=== PATIENT | female | born 1970 | race Caucasian/White ===

== ENCOUNTER 2021-01-24 05:43 | Inpatient (IN) | payer BC, OTHER ==
[~2021-01-24] VITALS: Ht 172.7 cm; Wt 49.4 kg
[2021-01-24] VITALS (14 sets, daily range): BP systolic 66–107; BP diastolic 33–64
[2021-01-24] MEDS ORDERED: DEXTROSE 50% 50 ML VIAL As Ordered ONE (05:55)
[2021-01-24] MEDS ORDERED: NOREPINEPHRINE 4 MG/4 ML AMP As Ordered ONE (06:03)
[2021-01-24] MEDS ORDERED: EPINEPHrine HCL INJ 1 MG in D5W 240 ML IV STA (06:28)
[2021-01-24 06:35] LABS: HEMATOCRIT 36.7 % (36.0-47.0); HEMOGLOBIN 10.6 g/dl (12.0-15.5); MEAN CORPUSCULAR HEMOGLOBIN 20.4 pg (27.0-33.0); MEAN CORPUSCULAR HGB CONC 28.9 g/dl (32.0-36.5); MEAN CORPUSCULAR VOLUME 70.6 fl (80.0-96.0); WHITE BLOOD COUNT 1.7 10^3/uL (4.0-10.0)
[2021-01-24 06:39] LABS: ABG HCO3 5.4 MEQ/L (22.0-26.0); ABG TOTAL CO2 7.2 MEQ/L (22.0-29.0)
[2021-01-24 06:41] LABS: ABG BASE EXCESS -32.6 (-2.0-2.0); ABG PARTIAL PRESSURE CO2 58.7 mmHg (35.0-45.0); ABG PARTIAL PRESSURE O2 89.3 mmHg (75.0-100.0); ABG STANDARD HCO3 2.6 MEQ/L (22.0-26.0)
[2021-01-24 06:42] LABS: ABG pH (ARTERIAL) 6.583 UNITS (7.350-7.450)
[2021-01-24 06:48] LABS: INR 2.06; PROTHROMBIN TIME 23.6 SECONDS (12.7-14.5)
[2021-01-24 06:50] LABS: PARTIAL THROMBOPLASTIN TIME 81.9 SECONDS (25.9-37.0)
[2021-01-24] MEDS ORDERED: NS 1,000 ML IV ONE ×3 (06:50→09:00)
[2021-01-24] MEDS ORDERED: NOREPINEPHRINE BITARTRATE 8 MG in D5W 492 ML IV SCH ×2 (06:50→10:05)
[2021-01-24 07:08] LABS: ALBUMIN 1.3 GM/DL (3.2-5.2); ALT/SGPT 292 U/L (12-78); BILIRUBIN,DIRECT 0.5 MG/DL (0.0-0.2); BILIRUBIN,TOTAL 0.9 MG/DL (0.2-1.0); BLOOD UREA NITROGEN 30 MG/DL (7-18); CALCIUM LEVEL 11.4 MG/DL (8.5-10.1); CARBON DIOXIDE LEVEL 12 MEQ/L (21-32); CHLORIDE LEVEL 101 MEQ/L (98-107); CHOLESTEROL LEVEL < 50 MG/DL (<200); CHOLESTEROL RISK RATIO 4.545 (<5); CK-MB VALUE MASS 8.3 NG/ML (<3.6); CPK CREATINE PHOSPHOKINASE 426 U/L (26-192); GLOMERULAR FILTRATION RATE 36.6 (>58); GLUCOSE, FASTING 237 MG/DL (70-100); HDL CHOLESTEROL 11 MG/DL (>40); LDL CHOLESTEROL 13 MG/DL (<100); MB/CK RELATIVE INDEX 1.95 (< OR =4); NON-HDL-C 39 MG/DL; POTASSIUM SERUM 5.9 MEQ/L (3.5-5.1); SODIUM LEVEL 140 MEQ/L (136-145); TOTAL PROTEIN 3.6 GM/DL (6.4-8.2); TRIGLYCERIDES LEVEL 129 MG/DL (<150); TROPONIN I 0.14 NG/ML (< 0.10)
[2021-01-24] MEDS ORDERED: PIPERACILLIN/TAZOBACTAM SOD 4.5 GM in D5W MINI-BAG PLUS 50 ML IV ONE (08:00)
[2021-01-24] MEDS ORDERED: VANCOMYCIN HCL 1,000 MG, VIAL MATE ADAPTER 1 EACH in NS 250 ML IV ONE (08:00)
[2021-01-24] MEDS: EPINEPHRINE HCL IV SCH ×6 (08:00→15:54)
[2021-01-24] MEDS: D5W IV SCH ×6 (08:00→15:54)
[2021-01-24 08:02] LABS: PLATELET COUNT, AUTOMATED 26 10^3/uL (150-450)
[2021-01-24] MEDS ORDERED: SODIUM BICARBONATE 8.4% INJ 50 ML SYRINGE IV STA ×3 (08:03→14:49)
[2021-01-24] MEDS ORDERED: SOD POLYSTYRENE SULFONATE SUSP 15 GM/60 ML UD NG ONE (08:05)
[2021-01-24] MEDS ORDERED: HumuLIN R (REGULAR) INSULIN (NovoLIN R) **100U/ML** PER UNIT SC ONE (08:05)
[2021-01-24] MEDS ORDERED: VASOPRESSIN INJ 20 UNITS/ML VIAL As Ordered ONE (08:12)
[2021-01-24 08:13] LABS: LYMPHOCYTES 92 % (16-44); METAMYELOCYTES 2 % (0-0); MONOCYTES 4 % (0-5)
[2021-01-24 08:14] LABS: PLATELET ESTIMATE MARKED DECREASE (NORMAL)
[2021-01-24 08:17] LABS: CRENATED RBC 3+; SCHISTOCYTES 2+
[2021-01-24 08:18] LABS: OVALOCYTES 1+
[2021-01-24 08:19] LABS: ANISOCYTOSIS 1+
--- NOTE | 2021-01-24 08:25 | REP ---
INDICATION: ett. COMPARISON: None. TECHNIQUE: Supine portable radiograph of the chest. Single-view. FINDINGS: An endotracheal tube is been passed in good position at the level of the transverse aorta. NG tube enters the left upper quadrant of the abdomen. EKG monitoring electrodes overlie the chest. There are extensive bilateral pulmonary parenchymal infiltrates consistent with extensive pneumonia. Air bronchograms are seen throughout the left lower lobe in the opacity in the left lower lobe obscures the left hemidiaphragm. There is extensive opacification in the right upper lobe and in the right lower lobe as well. Heart is not felt to be enlarged. The extra thoracic soft tissues are extremely thin suggestive of. IMPRESSION: Extensive bilateral pulmonary parenchymal infiltrates consistent with widespread pneumonia. Endotracheal and nasogastric tubes in good position <Electronically signed by Nikolay Logan > 01/24/21 0882
[2021-01-24] MEDS ORDERED: CALCIUM GLUCONATE 1,000 MG in D5W MINI-BAG PLUS 100 ML IV ONE (08:35)
[2021-01-24 08:39] LABS: ABG BASE EXCESS -31.7 (-2.0-2.0); ABG HCO3 5.4 MEQ/L (22.0-26.0); ABG O2 SATURATION 80.2 % (95.0-99.0); ABG PARTIAL PRESSURE CO2 49.9 mmHg (35.0-45.0); ABG PARTIAL PRESSURE O2 75.6 mmHg (75.0-100.0); ABG STANDARD HCO3 3.6 MEQ/L (22.0-26.0)
[2021-01-24 08:40] LABS: ABG pH (ARTERIAL) 6.656 UNITS (7.350-7.450)
[2021-01-24] MEDS ORDERED: PANTOPRAZOLE 40MG VIAL (C9113 PER 1) IV SCH (09:00)
[2021-01-24] MEDS ORDERED: MUCI600T31 PO (09:20)
[2021-01-24] MEDS ORDERED: ACET-897 PO (09:20)
[2021-01-24] MEDS ORDERED: ROBI1LIQ9 PO (09:20)
[2021-01-24] MEDS ORDERED: HOME MED LIST COMPLETE! XX SCH (09:25)
[2021-01-24] MEDS ORDERED: PHYTONADIONE 10MG/ML INJECTION (J3430) SC ONE (10:15)
[2021-01-24 10:39] LABS: HEMATOCRIT 39.8 % (36.0-47.0); HEMOGLOBIN 11.8 g/dl (12.0-15.5); MEAN CORPUSCULAR HEMOGLOBIN 21.8 pg (27.0-33.0); MEAN CORPUSCULAR HGB CONC 29.6 g/dl (32.0-36.5); MEAN CORPUSCULAR VOLUME 73.4 fl (80.0-96.0); RED BLOOD COUNT 5.42 10^6/uL (4.00-5.40); WHITE BLOOD COUNT 1.2 10^3/uL (4.0-10.0)
[2021-01-24 10:44] LABS: PLATELET COUNT, AUTOMATED 15 10^3/uL (150-450)
--- NOTE | 2021-01-24 10:50 | HPEPDOC ---
[facility] Medical History & Physical Date of Admission Jan 24, 2021 Date of Service: Jan 24, 2021 Primary Care Physician: A History and Physical REASON FOR CONSULTATION/CHIEF COMPLAINT: Cardiac arrest HISTORY OF PRESENT ILLNESS: History taken from the spouse. This is a 50-year-old female with no significant past medical history presented to the ER status post cardiac arrest. Patient was diagnosed with Covid approximately 3 days ago, was having URI symptoms at home and was just taking Tylenol as needed. The patient did start to develop shortness of breath over the last day. Early this morning the patient got up from bed and per the she had a mechanical fall. He noticed that she was unresponsive and called EMS and started doing CPR. When EMS arrived she was in asystole and there were multiple rounds of CPR. Upon arrival to the ED CPR was also initiated ROSC was achieved after 7 minutes And patient was intubated. She then went into PEA and several rounds of CPR were again initiated. A total downtime was approximately 1 hour and 15 minutes. She remained hemodynamically unstable requiring vasopressor support, she is currently on max dose of epi, vaso-, levo drips. She was noted to have bright red blood coming from the OG tube in total she had approximately 1.5 L of blood suctioned from her OG tube. Massive transfusion protocol was initiated the patient is currently receiving her third and fourth unit of PRBC. ALLERGIES: Please see below. HOME MEDICATIONS: Please see below. PAST MEDICAL HISTORY: None PAST SURGICAL HISTORY: Per bleeding complication during childbirth many years ago FAMILY HISTORY: No significant cardiopulmonary disease. SOCIAL HISTORY: Former smoker quit many years ago. No alcohol use no drug use. 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 REVIEW OF SYSTEMS: Unable to obtain review of systems given patient is intubated PHYSICAL EXAMINATION: VITAL SIGNS: Please see below. GENERAL APPEARANCE: Intubated HEENT: no thyromegaly, trachea midline, dilated mildly reactive, normal mucous membranes . RESPIRATORY: CTA B/L, good air entry. CARDIOVASCULAR: +s1 s2, no murmurs. ABDOMEN: nontender, not distended, +BS Stinson catheter in place EXTREMITIES: no edema or erythema. palpable distal pulses, central line and arterial lines are in the right and left groin respectively SKIN: no rash, no purpura NEUROLOGICAL: Unresponsive LABORATORY DATA: Please see below. Labs and Imaging personally reviewed by me. Pertinent imaging: Chest x-ray showing bilateral opacities, ET tube and OG tube are in satisfactory position IMPRESSION: The most critical problems requiring my immediate presence at bedside are: 1. Acute hypoxic respiratory failure secondary to Covid pneumonia. Cannot rule out bacterial coinfection. 2. Status post multiple cardiopulmonary arrest approximate downtime 1 hour, no evidence of neurological recovery at this time 3. TISHA with hyperkalemia 4. Upper GI bleed in the setting of thrombocytopenia and elevated INR 5. Severe lactic acidosis 6. Mildly elevated troponins likely demand ischemia 7. 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 Targeted temperature management for the next 24 hours, maintain core temperature of 36 to 37 C. PULM: HOB 30 degrees. Maintain Sp02 94-98%. Vent changes: FiO2 100%, PEEP 14, respiratory rate 28, tidal volume 6 cc/kg of ideal body weight. Repeat ABG in half an hour. Decadron 6 mg daily. CARDIO: Maintain MAPs 60-65. Continue with vasopressor support, currently on max dose vaso-, levo, epi. Repeat lactate GI: NG tube to low intermittent suction. GI eval for upper GI bleed RENAL: Follow-up electrolytes. Keep Stinson. ID: Broad-spectrum antibiotics with vancomycin and Zosyn. Would start remdesivir. ENDO: Monitor FS per routine. Goal range 140-180. HEME: DIC panel, Check inflammatory markers. Give 2 units platelets and 1 unit FFP for now and repeat CBC and coags every 8 hours. LINES/CATHETERS: Right femoral arterial line, left femoral central line. DVT/GI PPX with sequential compression stockings CODE STATUS: Patient is full code. After speaking with I explained the very poor prognosis.. DISPOSITION: ICU. A total of 65 minutes of critical care time was spent at the bedside, not including procedures Vital Signs Vital Signs Date Time Temp Pulse Resp B/P (MAP) Pulse Ox O2 Delivery O2 Flow Rate FiO2 01/24/21 10:24 100 01/24/21 08:18 56 84 01/24/21 07:54 101/58 (72) 01/24/21 06:37 22 01/24/21 06:13 Ventilator Laboratory Data Labs 24H Laboratory Tests 2 01/24/21 05:53: POC Glucose (Misc Panel) < 20*L, POC Sodium (Misc Panel) 135L, POC Potassium (Misc Panel) 5.9H, POC Chloride (Misc Panel) 106, POC Total CO2 (Misc Panel) 12.0L, POC Blood Urea Nitrogen (Misc Panel 39H, POC Ionized Calcium (Misc Panel) 4.5, POC Creatinine (Misc Panel) 1.6H, POC Hematocrit (Misc Panel) 41.0 01/24/21 06:15: Neutrophils (%) (Auto) , Nucleated Red Blood Cells % (auto) 9.2H, Band Neutrophils 2, Lymphocytes (Manual) 92H, Monocytes (Manual) 4, Metamyelocytes 2H, Anisocytosis 1+, Schistocytes 2+, Ovalocytes 1+, Crenated Cell 3+, Acanthocytes 1+, Platelet Estimate MARKED DECREASE, Immature Platelet Fraction 8.3, Prothrombin Time 23.6H, Prothromb Time International Ratio 2.06, Activated Partial Thromboplast Time 81.9H, Anion Gap 27H, Glomerular Filtration Rate 3 6.6L, Calcium Level 11.4H, Total Bilirubin 0.9, Direct Bilirubin 0.5H, Aspartate Amino Transf (AST/SGOT) 899H, Alanine Aminotransferase (ALT/SGPT) 292H, Alkaline Phosphatase 47, Total Creatine Kinase 426H, Creatine Kinase MB 8.3H, Creatine Kinase MB Relative Index 1.95, Troponin I 0.14H, Total Protein 3.6L, Albumin 1.3L, Albumin/Globulin Ratio 0.6L, Triglycerides Level 129, Total Cholesterol < 50, LDL Cholesterol 13, Non-HDL Cholesterol (LDL + VLDL) 39, Total HDL Cholesterol 11L, Cholesterol/HDL Ratio 4.545 01/24/21 06:33: Blood Gas Bicarbonate Standard 2.6L, Arterial Blood pH 6.583*L, Arterial Blood Partial Pressure CO2 58.7H, Arterial Blood Partial Pressure O2 89.3, Arterial Blood Total CO2 7.2L, Arterial Blood HCO3 5.4L, Arterial Blood Base Excess - 32.6L, Arterial Blood Oxygen Saturation 83.0L 01/24/21 06:39: Bedside Glucose (Misc Panel) 208H 01/24/21 07:08: Bedside Glucose (Misc Panel) 248H 01/24/21 08:16: Lactic Acid Level 21.3*H 01/24/21 08:30: Blood Gas Bicarbonate Standard 3.6L, Arterial Blood pH 6.656*L, Arterial Blood Partial Pressure CO2 49.9H, Arterial Blood Partial Pressure O2 75.6, Arterial Blood Total CO2 7.0L, Arterial Blood HCO3 5.4L, Arterial Blood Base Excess - 31.7L, Arterial Blood Oxygen Saturation 80.2L 01/24/21 10:27: CBC/BMP Laboratory Tests 01/24/21 06:15 Microbiology Microbiology 01/24/21 Blood Culture, Received Pending Home Medications Scheduled PRN Acetaminophen (Tylenol Extra Strength) 500 Mg Tablet, 500 MG PO Q4-6HP PRN for PAIN LEVEL 1-4 Guaifenesin (Mucinex) 600 Mg Tab.er.12h, 600 MG PO DAILY PRN for CONGESTION Guaifenesin/Dextromethorphan (Robitussin Cough-Chest Dm Liq) 237 Ml Liquid, 5 ML PO Q6-8HP PRN for COUGH Allergies Coded Allergies: No Known Allergies (Verified Allergy, Unknown, 01/24/21) A-FIB/CHADSVASC A-FIB History Current/History of A-Fib/PAF?: No KOBI FERRARI MD Jan 24, 2021 10:50
[2021-01-24] MEDS ORDERED: VASOPRESSIN INJ 20 UNITS in NS 499 ML IV SCH (11:00)
[2021-01-24 11:13] LABS: ATYPICAL LYMPH 6 % (0-5); LYMPHOCYTES 64 % (16-44); METAMYELOCYTES 12 % (0-0); MONOCYTES 6 % (0-5); MYELOCYTES 6 % (0-0); NEUTROPHILS 2 % (28-66)
[2021-01-24 11:14] LABS: CRENATED RBC 3+; PLATELET ESTIMATE MARKED DECREASE (NORMAL)
[2021-01-24 11:15] LABS: SCHISTOCYTES 2+
[2021-01-24 11:16] LABS: ANISOCYTOSIS 2+
[2021-01-24 11:17] LABS: OVALOCYTES 1+
[2021-01-24 11:34] LABS: ABG BASE EXCESS -24.5 (-2.0-2.0); ABG HCO3 10.4 MEQ/L (22.0-26.0); ABG O2 SATURATION 65.7 % (95.0-99.0); ABG PARTIAL PRESSURE CO2 64.3 mmHg (35.0-45.0); ABG PARTIAL PRESSURE O2 44.8 mmHg (75.0-100.0); ABG STANDARD HCO3 7.3 MEQ/L (22.0-26.0); ABG TOTAL CO2 12.4 MEQ/L (22.0-29.0); ABG pH (ARTERIAL) 6.826 UNITS (7.350-7.450)
[2021-01-24] MEDS ORDERED: NOREPINEPHRINE BITARTRATE 16 MG in D5W 484 ML IV SCH ×3 (11:45→17:30)
--- NOTE | 2021-01-24 12:16 | ROOPDOC ---
[facility] Report Of Operation Report of Operation INDICATION: Hypotension PROCEDURE: Right side femoral arterial line PROCEDURE CREDIT CASHIER: Dr Hernandez CONSENT: Consent was implied as it was done under emergency circumstances PROCEDURE SUMMARY: A time out was performed. My hands were washed immediately prior to the procedure. I wore a surgical cap, mask with protective eyewear, sterile gown and sterile gloves throughout the procedure. The right inguinal region was prepped using chlorhexidine scrub and draped in sterile fashion using a three quarter sheet drape and sterile towels. Using ultrasound guidance the right femoral artery was identified. Anesthesia was achieved using 1% lidocaine. The introducer needle was inserted into the femoral artery. Arterial blood was withdrawn. The syringe was removed and a guidewire was advanced through the needle into the femoral artery. The needle was exchanged over the wire for an arterial catheter. The wire was removed and the catheter was secured to the skin using a suture. The patient tolerated the procedure without any hemodynamic compromise. At time of procedure completion, the catheter was connected to the cardiac sonographer and calibrated. Appropriate waveform and blood pressure tracing was observed. Estimated blood loss is 10 cc. KOBI HERNANDEZ MD Jan 24, 2021 12:16
--- NOTE | 2021-01-24 12:17 | ROOPDOC ---
[facility] Report Of Operation Report of Operation INDICATION: Hypotension and venous access PROCEDURE: Left side femoral triple-lumen catheter placement PROCEDURE ENROUTE CONTROLLER: Dr Hernandez CONSENT: Consent was implied as this was done under emergency circumstances PROCEDURE SUMMARY: A time out was performed. My hands were washed immediately prior to the procedure. I wore a surgical cap, mask with protective eyewear, sterile gown and sterile gloves throughout the procedure. The left inguinal region was prepped using chlorhexidine scrub and draped in sterile fashion using a full drape and sterile probe cover and sterile gel employed. Anesthesia was achieved using 1% lidocaine. Using ultraound guidance the left femoral vein was accessed with the introducer needle. Venous blood was withdrawn. The syringe was removed and a guidewire was advanced into the introducer needle. A small incision was made at the skin surface with a scalpel and the introducer needle was exchanged for a di lator over the guidewire. After appropriate dilation was obtained, the dilator was exchanged over the wire for a central venous catheter. The wire was removed and the catheter was sutured in place at 18 cm. A sterile shield was placed over the catheter at the insertion site. The patient tolerated the procedure without any hemodynamic compromise. At time of procedure completion, all ports aspirated and flushed properly. Estimated blood loss is 10 cc. KOBI HERNANDEZ MD Jan 24, 2021 12:17
[2021-01-24 12:32] LABS: BILIRUBIN,TOTAL 1.1 MG/DL (0.2-1.0); CALCIUM LEVEL 7.8 MG/DL (8.5-10.1); CREATININE FOR GFR 2.29 MG/DL (0.55-1.30); GLOMERULAR FILTRATION RATE 24.2 (>58); MAGNESIUM LEVEL 4.1 MG/DL (1.8-2.4); POTASSIUM SERUM 4.9 MEQ/L (3.5-5.1); TOTAL PROTEIN 3.4 GM/DL (6.4-8.2)
--- NOTE | 2021-01-24 12:34 | REP ---
INDICATION: covid, et tube placement. COMPARISON: Comparison is made with the earlier film from this date 6:15 a.m.. TECHNIQUE: Portable upright AP chest radiograph. 12:13 p.m. radiograph. FINDINGS: Endotracheal tube remains in good position. NG tube enters the left upper quadrant of the abdomen. EKG monitoring electrodes overlie the chest. Extensive infiltrates are seen throughout the lung israel. Radiographically, these have progressed in the short interval 6:15 a.m. study done 6 hours earlier. The lung israel are largely opacified bilaterally. Cardiomediastinal silhouette is unremarkable. IMPRESSION: Severe, rapidly progressive bilateral infiltrates. Nasogastric tubes in place. <Electronically signed by Nikolay Logan > 01/24/21 [id number]
[2021-01-24 12:35] LABS: PHOSPHORUS LEVEL 12.7 MG/DL (2.5-4.9)
[2021-01-24 12:56] LABS: ABG BASE EXCESS -20.9 (-2.0-2.0); ABG HCO3 11.7 MEQ/L (22.0-26.0); ABG O2 SATURATION 68.1 % (95.0-99.0); ABG PARTIAL PRESSURE CO2 56.4 mmHg (35.0-45.0); ABG STANDARD HCO3 9.2 MEQ/L (22.0-26.0); ABG TOTAL CO2 13.5 MEQ/L (22.0-29.0)
[2021-01-24 12:57] LABS: ABG PARTIAL PRESSURE O2 41.5 mmHg (75.0-100.0); ABG pH (ARTERIAL) 6.936 UNITS (7.350-7.450)
[2021-01-24] MEDS ORDERED: FUROSEMIDE 100MG/10ML VIAL (J1940) IV ONE (13:25)
[2021-01-24] MEDS ORDERED: FUROSEMIDE 100MG/10ML VIAL (J1940) As Ordered ONE (13:25)
[2021-01-24] MEDS ORDERED: GLUCOSE 4GM CHEW TABLET PO PRN (13:35)
[2021-01-24] MEDS ORDERED: DEXTROSE 50% 50 ML SYRINGE IV PRN (13:35)
[2021-01-24] MEDS ORDERED: GLUCAGON INJ 1MG VIAL SC PRN (13:35)
[2021-01-24] MEDS ORDERED: EPINEPHrine 1MG/10ML SYRINGE 1.5IN ONE (13:40)
[2021-01-24] MEDS ORDERED: SODIUM BICARBONATE 8.4% INJ 50 ML SYRINGE ONE (13:40)
[2021-01-24] MEDS ORDERED: CALCIUM CHLORIDE 10% 1 GM/10 ML SYR ONE (13:40)
[2021-01-24] MEDS ORDERED: DOBUTamine 500 MG/250 ML BAG IN D5W (2,000 MCG/ML) (J1250) As Ordered ONE (13:53)
[2021-01-24] MEDS ORDERED: INSULIN REGULAR IN 0.9 % NACL 100 UNIT in IV 1 EA IV SCH ×2 (14:00)
[2021-01-24] MEDS ORDERED: HYDROCORTISONE 100 MG/2 ML VIAL (J1720 PER 1) IV SCH (14:00)
[2021-01-24] MEDS ORDERED: DOBUTamine HCL 500,000 MCG in IV 1 EA IV SCH (14:00)
[2021-01-24 14:48] LABS: ABG BASE EXCESS -17.5 (-2.0-2.0); ABG HCO3 13.1 MEQ/L (22.0-26.0); ABG STANDARD HCO3 10.9 MEQ/L (22.0-26.0)
[2021-01-24 14:49] LABS: ABG O2 SATURATION 56.9 % (95.0-99.0); ABG PARTIAL PRESSURE CO2 50.2 mmHg (35.0-45.0); ABG TOTAL CO2 14.7 MEQ/L (22.0-29.0)
[2021-01-24 14:51] LABS: ABG pH (ARTERIAL) 7.036 UNITS (7.350-7.450)
[2021-01-24] MEDS ORDERED: D5W IV SCH (15:00)
[2021-01-24] MEDS ORDERED: EPINEPHRINE HCL IV SCH (15:00)
[2021-01-24 15:05] LABS: HEMATOCRIT 41.4 % (36.0-47.0); HEMOGLOBIN 12.9 g/dl (12.0-15.5); MEAN CORPUSCULAR HEMOGLOBIN 22.8 pg (27.0-33.0); MEAN CORPUSCULAR HGB CONC 31.2 g/dl (32.0-36.5); MEAN CORPUSCULAR VOLUME 73.3 fl (80.0-96.0); RED BLOOD COUNT 5.65 10^6/uL (4.00-5.40); WHITE BLOOD COUNT 1.2 10^3/uL (4.0-10.0)
[2021-01-24 15:07] LABS: PLATELET COUNT, AUTOMATED 25 10^3/uL (150-450)
--- NOTE | 2021-01-24 15:13 | ECGEPIP ---
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 No prior ECG available for comparison at the time of interpretation. Electronically Signed on 01-24-2021 15:13:46 EDT by Kip Stewart
[2021-01-24] MEDS: INSULIN IV RATE CHANGE DOCUMENTATION ML/HR XX SCH ×2 (15:18→16:02)
[2021-01-24 15:23] LABS: INR 2.43; PROTHROMBIN TIME 26.8 SECONDS (12.7-14.5)
[2021-01-24 15:25] LABS: PARTIAL THROMBOPLASTIN TIME 92.1 SECONDS (25.9-37.0)
[2021-01-24 15:39] LABS: ERYTHROCYTE SEDIMENTATION RATE 1 mm/hr (0-20)
--- NOTE | 2021-01-24 15:45 | ROOPDOC ---
[facility] Report Of Operation Report of Operation INDICATION: Renal failure PROCEDURE: Right internal jugular dual-lumen dialysis catheter placement PROCEDURE RESIDENTIAL COORDINATOR: Dr. Hernandez CONSENT: Consent was obtained to the procedure. Indications, risks, and benefits were explained at length. Consent was verbal from spouse. PROCEDURE SUMMARY: A time out was performed. My hands were washed immediately prior to the procedure. I wore a surgical cap, mask with protective eyewear, full gown and sterile gloves throughout the procedure. The patient was placed in Trendelenburg position. The right chest region was prepped using chlorhexidine scrub and draped in sterile fashion using a full drape and sterile probe cover and sterile gel employed. The right internal Jugular vein was identified using the ultrasound. Anesthesia was achieved over the vein using 1% lidocaine. Using real-time out of plane guidance, the introducer needle was inserted into the Internal Jugular vein under direct ultrasound visualization. Venous blood was withdrawn. The syringe was removed and a guidewire was advanced into the introducer needle. The guidewire was visualized in the Internal Jugular Vein by ultrasound. A small incision was made at the skin surface with a scalpel and the introducer needle was exchanged for a dilator over the guidewire. After appropriate dilation was obtained, the dilator was exchanged over the wire for a central venous catheter. The wire was removed and the catheter was sutured in place at 17 cm. A sterile shield was placed over the catheter at the insertion site. The patient tolerated the procedure without any hemodynamic compromise. At time of procedure completion, all ports aspirated and flushed properly. Post- procedure chest x-ray is pending at this time. Estimated blood loss is 15 cc. KOBI HERNANDEZ MD Jan 24, 2021 15:45
[2021-01-24] MEDS ORDERED: CEFEPIME HCL 1 GM in D5W MINI-BAG PLUS 50 ML IV SCH (16:00)
[2021-01-24 16:01] LABS: ALBUMIN 1.1 GM/DL (3.2-5.2); BILIRUBIN,TOTAL 1.3 MG/DL (0.2-1.0); C REACTIVE PROTEIN QUANTITATIV 5.8 MG/DL (0.00-0.30); CALCIUM LEVEL 6.5 MG/DL (8.5-10.1); CREATININE FOR GFR 2.38 MG/DL (0.55-1.30); GLOMERULAR FILTRATION RATE 23.2 (>58); MAGNESIUM LEVEL 3.3 MG/DL (1.8-2.4); PHOSPHORUS LEVEL 11.1 MG/DL (2.5-4.9); POTASSIUM SERUM 3.6 MEQ/L (3.5-5.1); TOTAL PROTEIN 3.8 GM/DL (6.4-8.2)
[2021-01-24] MEDS ORDERED: HumuLIN R (REGULAR) INSULIN (NovoLIN R) **100U/ML** PER UNIT SC STA (16:07)
--- NOTE | 2021-01-24 16:08 | REP ---
INDICATION: line placement. COMPARISON: Comparison is made with the 12:13 p.m. portable chest x-ray from this date. TECHNIQUE: Single AP portable chest radiograph time stamped 3:53 p.m.. FINDINGS: A right internal jugular central venous line is been inserted with its tip in the expected location of the superior vena cava. Endotracheal tube remains in good position. NG tube enters the left upper quadrant. Extensive bilateral pulmonary parenchymal infiltrates persist. Essentially unchanged. IMPRESSION: Right IJ line in place. No pneumothorax seen. Endotracheal and nasogastric tubes in place. Lung israel unchanged. Extensive pneumonia bilaterally. <Electronically signed by Nikolay Logan > 01/24/21 [id number]
[2021-01-24 16:10] LABS: D-DIMER QUANT > 4000 ng/ml (<500)
[2021-01-24] MEDS ORDERED: VANCOMYCIN INTERMITTENT/PULSE DOSING BY CLINICAL PHARMACIST PER DOSING PROTOCOL XX SCH (17:20)
[2021-01-24] MEDS ORDERED: CHLORHEXIDINE GLUCONATE 0.12 % 15ML UDC (PERIDEX ORAL RINSE) MT SCH (21:00)
--- NOTE | 2021-01-24 21:36 | CR ---
NEPHROLOGY CONSULTATION DATE: 01/24/2021 CONSULTATION REQUESTED BY: Jorge Hernandez M.D. REASON FOR CONSULTATION: Oliguric acute renal failure in this lady who is status post cardiac arrest and in shock and multiorgan failure. HISTORY OF PRESENT ILLNESS: Mrs. Maya is a 50-year-old female with no significant past medical history, who was not feeling well for a few days. Apparently she had upper respiratory infection symptoms and did have a COVID Test done on Monday, which was reported positive. According to her admission history, patient became unresponsive at home and fell. Her called EMS and started CPR. She had multiple episodes of CPR due to recurrent cardiac arrest and her total downtime was 1 hour 15 minutes. She is now in the Intensive Care Unit on multiple pressors including Dobutamine, Epinephrine, Vasopressin and Levophed. Her blood pressure is only in 60's. I discussed the case a couple of times with Dr. Hernandez, who had requested help with possible CRRT. He did place a dialysis catheter and asked me to come in for CRRT. On my arrival, patient was very hypotensive with blood pressure in 50's and 60's and a mean arterial pressure in 30's. Patient's was present in her room and considering to make a decision about possible withdrawal of care, however, the patient is already in the terminal condition. PAST MEDICAL/SURGICAL HISTORY: Patient had no significant past medical history. Her reported some complication during childbirth many years ago with bleeding. HOME MEDICATIONS: She was taking only Tylenol as needed for upper respiratory symptoms and Mucinex and Robitussin. ALLERGIES: She has no known drug allergies. FAMILY HISTORY: Noncontributory. PERSONAL AND SOCIAL HISTORY: Patient is a former smoker, who quit many years ago. No alcohol or drug history. 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 REVIEW OF SYSTEMS: Patient intubated and unable to provide any information. There is no other relevant pertinent information available. PHYSICAL EXAMINATION: GENERAL: Patient is intubated and has an orogastric tube. Apparently there was about 1.5 liters of blood suctioned from her OG tube. She has received multiple transfusions. MOST RECENT VITAL SIGNS: Blood pressure mostly in the 60's/30's, heart rate 78 per minute, respiratory rate 32 per minute on the ventilator with 100% FIO2, temperature now 96 degrees Fahrenheit. Endotracheal and orogastric tubes are in place. HEART: Regular. LUNGS: Diminished breath sounds. ABDOMEN: Without bowel sounds. EXTREMITIES: With cyanosis. LABORATORY DATA: WBC 1.2, hemoglobin 12.9, hematocrit 41.4, platelets only 25,000. Blood gas earlier showed a pH of 6.65, pCO2 of 49.9 and pO2 of 75.6 with bicarb 3. Most recent blood gas after intubation showed a pH of 7.0, pCO2 of 50, pO2 in 30's and bicarb 11. INR 2.43 and D-Dimer greater than 4,000. Sodium 127, potassium 3.6, CO2 18, BUN 37 and creatinine 2.38. Glucose 697. Lactic acid level 15.1, calcium 6.5, phosphorus 11.1, ferritin 25,490, AST 2,218, ALT 607, total bilirubin 1.3, C-reactive protein 5.8, total protein 3.8 and albumin 1.1. IMAGING STUDIES: Chest x-ray with bilateral infiltrates, extensive pneumonia bilaterally, right IJ line in place and no pneumothorax. Endotracheal and nasogastric tubes in place. PROBLEMS: 1. Renal failure: Patient has acute renal failure secondary to prolonged cardiac arrest and CPR. She is in multiorgan failure due to prolonged cardiac arrest. Unfortunately, her blood pressure is only in 60's with multiple pressors and prognosis is grim. I do not feel that she will be able to tolerate CRRT. I did write the CRRT orders and advised the nursing staff to start it only once she is hemodynamically stable at least for 30 to 60 minutes. 2. Lactic acidosis: She has severe lactic acidosis due to prolonged cardiac arrest. She is probably already suffered anoxic encephalopathy and multiorgan ischemia. Her prognosis remains grim. Thank you for asking me to participate in the care of this young lady. Unfortunately, she is already in terminal condition and not likely to survive.
--- NOTE | 2021-02-09 11:17 | DS.PDOC ---
Discharge Summary General Date of Admission Jan 24, 2021 at 10:05 Date of Discharge jan 24, 2021 Discharge Summary This is a 42-year-old female with no significant past medical history she presented initially to the ER status post cardiac arrest. Patient was diagnosed with Covid approximately 3 days prior to presentation she was having URI symptoms at home. The day prior to presentation she started to have shortness of breath. The spouse noticed that court officer she had gotten up from bed and then had a mechanical fall. When he went to her he noticed that she was unresponsive and called EMS. He started CPR at the house. EMS arrived and started CPR upon arrival to the ED patient was in asystole but eventually ROSC was achieved. Patient was then intubated in the ED. Patient then went into PEA and subsequently received several rounds of CPR again. A total downtime was approximately 1 hour and 15 minutes. In the ED she remained hemodynamically unstable requiring progressive vasopressor support eventually needing max dose of 4 drips. In the ED she was noted to have bright red blood been suctioning from the OG tube and the amount of 1.5 L of blood. Massive transfusion protocol was initiated and the patient eventually received 3 units PRBC 1 unit platelet 1 unit FFP. She was admitted to the ICU for acute hypoxic respiratory failure status secondary to Covid pneumonia, status post cardiac arrest with no evidence of neurological recovery, upper GI bleed, shock hemorrhagic/cardiogenic, TISHA, severe lactic acidosis and multiorgan dysfunction syndrome. Plan was targeted temperature management adjustment of vent settings to maintain a pulse ox 94 to 98% and lung protective ventilation strategy. She was started on Decadron. She received escalating doses of vasopressors. A right femoral arterial line and a left femoral central line were placed. She continued to decompensate hemodynamically in the ICU and after speaking with the spouse the poor prognosis he eventually decided to make her DNR. Few hours later she went into asystole and was present pronounced . Discharge Medications Scheduled PRN Acetaminophen (Tylenol Extra Strength) 500 Mg Tablet, 500 MG PO Q4-6HP PRN for PAIN LEVEL 1-4, (Reported) Guaifenesin (Mucinex) 600 Mg Tab.er.12h, 600 MG PO DAILY PRN for CONGESTION, (Reported) Guaifenesin/Dextromethorphan (Robitussin Cough-Chest Dm Liq) 237 Ml Liquid, 5 ML PO Q6-8HP PRN for COUGH, (Reported) Allergies Coded Allergies: No Known Allergies (Verified Allergy, Unknown, 01/24/21) KOBI FERRARI MD Feb 09, 2021 11:17
== END 2021-01-24 19:52 | disposition expired | DRG 196 ==
LOC: M ED 05:43 → EDAGE 05:43 → EDBD 05:43 → M ED INP 10:05 → ENRESERV 12:11 → M ICU 12:40
PROVIDERS: ADMIT Internal Medicine Pulmonary Disease; ATTEND Internal Medicine Pulmonary Disease
PROC: 5A1935Z Respiratory Ventilation, Less than 24 Consecutive Hours (ICD-10-PCS; principal; 2021-01-24)
PROC: 04HK33Z Insertion of Infusion Device into Right Femoral Artery, Percutaneous Approach (ICD-10-PCS; 2021-01-24)
DX: I46.9 Cardiac arrest, cause unspecified (principal); J12.82 Pneumonia due to coronavirus disease 2019; J96.01 Acute respiratory failure with hypoxia; R57.9 Shock, unspecified; N17.9 Acute kidney failure, unspecified; E87.2 Acidosis; D69.6 Thrombocytopenia, unspecified; U07.1 COVID-19; K92.2 Gastrointestinal hemorrhage, unspecified; E87.5 Hyperkalemia; I24.8 Other forms of acute ischemic heart disease; Z87.891 Personal history of nicotine dependence